=== PATIENT | female | born 1990 | race Caucasian/White ===

== ENCOUNTER 2018-04-21 10:25 | Emergency (ER) | payer MEDICAID ==
[~2018-04-21] VITALS: Ht 165.1 cm; Wt 117.9 kg
[~2018-04-21 10:25] MED LIST: ALBU90OI INH; BENZ100A PO; CEFD300 PO; CEPH500 PO; ERYT.5TO RIGHTEYE; FAMO20 PO; HYDACE5325 PO; METPHE5; MULVITMINE PO; Monodox100 MG PO; Norco 5-325 Ta1 EACH PO; OXYACE5T PO; PRED10 PO; PRED20 PO; PRENZ PO; PROM25 PO; Percocet 5-3251 EACH PO; Prednisone20 MG PO; QUET25 PO; SPACE CHAMBER1 EACH MC; TRAZ100 PO; Tylenol325 MG PO; Verotin-Gr Cap1 EACH
[2018-04-21] MEDS ORDERED: Artificial Tear15 M4 BOTHEYES (12:22)
== END 2018-04-21 12:25 | disposition home or self-care (01) ==
LOC: ER 10:25
DX: B30.9 Viral conjunctivitis, unspecified (principal); F17.210 Nicotine dependence, cigarettes, uncomplicated
CPT/HCPCS: 87081; 87430

== ENCOUNTER 2019-02-26 11:07 | Emergency (ER) | payer OTHER ==
[~2019-02-26] VITALS: Ht 165.1 cm; Wt 127.0 kg
[~2019-02-26 11:07] MED LIST changes: +Artificial Tear15 M4 BOTHEYES
[2019-02-26] MEDS ORDERED: HYDR1TAB94 PO (12:16)
[2019-02-26] MEDS ORDERED: Augmentin 875-1 EACH PO (12:17)
== END 2019-02-26 12:23 | disposition home or self-care (01) ==
LOC: ER 11:07
DX: K04.7 Periapical abscess without sinus (principal); F17.210 Nicotine dependence, cigarettes, uncomplicated; Z88.1 Allergy status to other antibiotic agents
CPT/HCPCS: 99283; A9270-GY

== ENCOUNTER 2022-02-04 18:21 | Emergency (ER) | payer OTHER ==
[~2022-02-04] VITALS: Ht 165.1 cm; Wt 95.2 kg
[~2022-02-04 18:21] MED LIST changes: +Augmentin 875-1 EACH PO; +HYDR1TAB94 PO
[2022-02-04] MEDS ORDERED: CEPH500 PO (22:14)
[2022-02-04] MEDS ORDERED: SULTRIDS PO (22:14)
== END 2022-02-04 22:22 | disposition home or self-care (01) ==
LOC: ER 18:21
DX: L03.116 Cellulitis of left lower limb (principal); F17.210 Nicotine dependence, cigarettes, uncomplicated; Z88.0 Allergy status to penicillin
CPT/HCPCS: 73590; A9270

== ENCOUNTER 2022-02-07 23:37 | Observation (INO) | payer OTHER ==
[~2022-02-07] VITALS: Ht 165.1 cm; Wt 104.7 kg
[~2022-02-07 23:37] MED LIST changes: +SULTRIDS PO
[2022-02-08 02:32] LABS: BASOPHILS ABSOLUTE AUTO 0.09 K/mm3 (0.00-0.23); BASOPHILS PERCENT AUTO 1 % (0-2); EOSINOPHILS PERCENT AUTO 5 % (0-6); Hematocrit 34.7 % (33.0-51.0); Hemoglobin 11.1 g/dL (11.5-16.0); IMMATURE GRAN ABSOLUTE AUTO 0.04 K/mm3 (0.00-0.10); IMMATURE GRAN PERCENT AUTO 1 % (0-1); LYMPHOCYTES PERCENT AUTO 36 % (21-46); MONOCYTES PERCENT AUTO 7 % (4-13); Mean Corpuscular HGB 27.9 pg (26.0-34.0); Mean Corpuscular Volume 87 fL (80-100); Mean Platelet Volume 10.5 fL (9.1-12.4); NEUTROPHILS ABSOLUTE AUTO 4.08 K/mm3 (1.96-9.15); NEUTROPHILS PERCENT AUTO 50 % (41-73); Platelet Count 427 K/mm3 (150-400); RDW Coefficient Variation 13.7 % (11.7-14.2); Red Blood Cell Count 3.98 M/mm3 (3.80-5.20); White Blood Cell Count 8.11 K/mm3 (4.00-11.30)
[2022-02-08 06:07] LABS: Albumin, Blood 2.9 g/dL (3.4-5.0); Albumin/Globulin Ratio 0.7 (0.8-1.8); Bilirubin, Total 0.3 mg/dL (0.1-1.0); Bun/Creatinine Ratio 20.3 (12.0-20.0); Calcium, Blood 9.5 mg/dL (8.5-10.1); Creatinine, Blood 0.74 mg/dL (0.40-1.00); Globulin, Blood 4.3 g/dL (2.2-4.0); Potassium, Blood 4.3 mmol/L (3.5-5.5); Total Protein, Blood 7.2 g/dL (6.4-8.2)
--- NOTE | 2022-02-08 16:12 | NUR ---
ER ADMIT- PT ARRIVED TO ROOM 308 VIA GURNEY FROM ED. PT A/OX4, INDEP INTO BED. PT DENIES ANY PAIN AT THIS TIME. LS CLEAR, ON RA. PT DOES REPORT URINARY URGENCY AND INCONT. PT NOTED TO HAVE A ABSCESS TO LEFT POSTERIOR THIGH, DRAINED IN THE ED AND PACKED. SURROUNDING REDNESS AND SWELLING NOTED. PHOTO TAKEN AND NEW DRESSING APPLIED. PT DENIES ANY OTHER COMPLAINTS. PT ORIENTED TO ROOM AND CALL SYSTEM, CALL LIGHT IN REACH.
[2022-02-09 05:22] LABS: BASOPHILS ABSOLUTE AUTO 0.06 K/mm3 (0.00-0.23); BASOPHILS PERCENT AUTO 1 % (0-2); EOSINOPHILS ABSOLUTE AUTO 0.42 K/mm3 (0.00-0.68); EOSINOPHILS PERCENT AUTO 7 % (0-6); Hemoglobin 10.8 g/dL (11.5-16.0); IMMATURE GRAN ABSOLUTE AUTO 0.05 K/mm3 (0.00-0.10); IMMATURE GRAN PERCENT AUTO 1 % (0-1); LYMPHOCYTES ABSOLUTE AUTO 2.72 K/mm3 (0.84-5.20); LYMPHOCYTES PERCENT AUTO 43 % (21-46); MONOCYTES ABSOLUTE AUTO 0.54 K/mm3 (0.16-1.47); MONOCYTES PERCENT AUTO 9 % (4-13); Mean Corpuscular HGB Conc 31.8 g/dL (31.5-36.5); Mean Corpuscular Volume 88 fL (80-100); Mean Platelet Volume 10.4 fL (9.1-12.4); NEUTROPHILS ABSOLUTE AUTO 2.52 K/mm3 (1.96-9.15); NEUTROPHILS PERCENT AUTO 40 % (41-73); Platelet Count 421 K/mm3 (150-400); RDW Coefficient Variation 13.8 % (11.7-14.2); RDW Standard Deviation 44.6 fL (35.1-46.3); Red Blood Cell Count 3.86 M/mm3 (3.80-5.20); White Blood Cell Count 6.31 K/mm3 (4.00-11.30)
--- NOTE | 2022-02-09 05:52 | NUR ---
SHIFT SUMMARY PATIENT ALERT AND ORIENTED. MEDICATED PER EMAR FOR PAIN. HAD NO COMPLAINTS OF SHORTNESS OF BREATH. NO ACUTE ISSUES NOTED OVERNIGHT. CALL LIGHT WITHIN REACH. REPORT GIVEN TO ONCOMING RN.
--- NOTE | 2022-02-09 17:02 | NUR ---
DISCHARGE SUMMARY S/P L POSTERIOR THIGH I&D, A/OX 4, VSS, TOLERATING PO, AMBULATING INDEPENDENTLY, VOIDING WELL. DISCUSSED DISCHARGE PLANS WITH THE PATIENT INCLUDING HOME MEDICATIONS, HOME CARE AND DRESSING CHANGES, AND FOLLOW UP INFORMATION. IV ACCESS REMOVED AND NO OTHER IV ACCESS DEVICES IN PLACE AT TIME OF DISCHARGE. PT ESCORTED OUT VIA WC TO PRIVATE AUTO TO GO HOME WITH ALL PERSONAL POSSESSIONS.
== END 2022-02-09 16:49 | disposition home or self-care (01) ==
LOC: ER 23:37 → ERHOLD 23:38 → ER 02-08 08:15 → EDBEDREQ 02-08 08:21 → EDBEDREQTM 02-08 08:21 → MEDS 02-08 15:36
PROVIDERS: Student in an Organized Health Care Education/Training Program; ADMIT Internal Medicine
DX: L02.416 Cutaneous abscess of left lower limb (principal); B95.62 Methicillin resistant Staphylococcus aureus infection as the cause of diseases classified elsewhere; F17.210 Nicotine dependence, cigarettes, uncomplicated; Z88.0 Allergy status to penicillin; F19.90 Other psychoactive substance use, unspecified, uncomplicated
CPT/HCPCS: 10060; 36415; 73701; 80053; 85025; 87070; 87077; 87147; 87186; 87205; 96365; 96366; 96372; 96375; 99285-25; A9270; G0378; J1650; J1885; J2405; J7040; Q9967

== ENCOUNTER 2022-04-20 02:09 | Emergency (ER) | payer OTHER ==
[~2022-04-20] VITALS: Ht 165.1 cm; Wt 86.2 kg
[2022-04-20] MEDS ORDERED: Bactrim Ds Tab1 EACH PO (02:31)
== END 2022-04-20 02:54 | disposition home or self-care (01) ==
LOC: ER 02:09
DX: L23.7 Allergic contact dermatitis due to plants, except food (principal); N39.0 Urinary tract infection, site not specified; F17.210 Nicotine dependence, cigarettes, uncomplicated; Z88.1 Allergy status to other antibiotic agents
CPT/HCPCS: 96372; 99283-25; A9270; J0702; J3301

== ENCOUNTER 2023-03-27 05:18 | Emergency (ER) | payer OTHER ==
[~2023-03-27] VITALS: Ht 165.1 cm; Wt 86.2 kg
[~2023-03-27 05:18] MED LIST changes: +Bactrim Ds Tab1 EACH PO
[2023-03-27 05:54] VITALS: BP 135/87
[2023-03-27] MEDS ORDERED: POLYTRIM EYE DR10 M1 BOTHEYES (06:40)
== END 2023-03-27 06:47 | disposition home or self-care (01) ==
LOC: ER 05:18
DX: S05.01XA Injury of conjunctiva and corneal abrasion without foreign body, right eye, initial encounter (principal); X58.XXXA Exposure to other specified factors, initial encounter; Z88.1 Allergy status to other antibiotic agents; Z79.899 Other long term (current) drug therapy; F17.210 Nicotine dependence, cigarettes, uncomplicated
CPT/HCPCS: 99283; A9270

== ENCOUNTER 2023-05-24 21:16 | Emergency (ER) | payer OTHER ==
[~2023-05-24] VITALS: Ht 165.1 cm; Wt 105.2 kg
[~2023-05-24 21:16] MED LIST changes: +POLYTRIM EYE DR10 M1 BOTHEYES
[2023-05-25 00:30] LABS: Source, Urine Clean Catch
[2023-05-25] MEDS ORDERED: Bactrim Ds Tab1 EACH PO (00:39)
[2023-05-25 00:40] LABS: Bilirubin, Urine Neg (Neg); Blood, Urine Neg (Neg); Glucose Qualitative, Urine Neg (Neg); Ketones, Urine Neg (Neg); Leukocyte Esterase, Urine Neg (Neg); Nitrite, Urine Pos (Neg); Protein, Urine 1+ (Neg); Urobilinogen, Urine NORM (Normal)
[2023-05-25] MEDS ORDERED: Mupirocin22 GM TOP (00:40)
[2023-05-25 00:49] VITALS: BP 125/72
[2023-05-25 00:52] LABS: Appearance, Urine Hazy (Clear); Color, Urine Yellow (P-Yellow)
[2023-05-25 00:53] LABS: Bacteria Many /hpf; Calcium Oxalate Crystals Few /hpf; Red Blood Cells, Urine 0-2 /hpf (0-2); Squamous Epithelial Cells Few /hpf (Few); White Blood Cells, Urine 0-2 /hpf (0-5)
== END 2023-05-25 00:50 | disposition home or self-care (01) ==
LOC: ER 21:16
PROVIDERS: Emergency Medicine
DX: N39.0 Urinary tract infection, site not specified (principal); S30.861A Insect bite (nonvenomous) of abdominal wall, initial encounter; W57.XXXA Bitten or stung by nonvenomous insect and other nonvenomous arthropods, initial encounter; F17.210 Nicotine dependence, cigarettes, uncomplicated
CPT/HCPCS: 81001; 87077; 87086; 87186; 99282; A9270

== ENCOUNTER 2023-09-05 03:53 | Emergency (ER) | payer OTHER ==
[~2023-09-05] VITALS: Ht 165.1 cm; Wt 104.3 kg
[~2023-09-05 03:53] MED LIST changes: +Mupirocin22 GM TOP
[2023-09-05 03:59] VITALS: BP 133/65
[2023-09-05] MEDS ORDERED: Robaxin750 MG PO (04:54)
[2023-09-05] MEDS ORDERED: Lidocaine 4% 1 Patch TOP ONE (04:55)
[2023-09-05] MEDS ORDERED: Ibuprofen 600 MG Tab PO ONE (04:55)
[2023-09-05] MEDS ORDERED: Acetaminophen 500 MG Tab PO ONE (04:55)
[2023-09-05] MEDS ORDERED: Methocarbamol 500 MG Tab PO ONE (04:55)
== END 2023-09-05 05:11 | disposition home or self-care (01) ==
LOC: ER 03:53
DX: S39.012A Strain of muscle, fascia and tendon of lower back, initial encounter (principal); W14.XXXA Fall from tree, initial encounter; Z88.1 Allergy status to other antibiotic agents; Z79.899 Other long term (current) drug therapy; F17.210 Nicotine dependence, cigarettes, uncomplicated
CPT/HCPCS: 99283; A9270

== ENCOUNTER 2023-11-27 00:37 | Emergency (ER) | payer OTHER ==
[~2023-11-27] VITALS: Ht 165.1 cm; Wt 104.3 kg
[~2023-11-27 00:37] MED LIST changes: +Robaxin750 MG PO
[2023-11-27 00:40] VITALS: BP 134/81
[2023-11-27] MEDS ORDERED: Clindamycin HCl 150 MG Cap PO ONE (00:50)
[2023-11-27] MEDS ORDERED: CLIN150 PO (00:57)
== END 2023-11-27 01:04 | disposition home or self-care (01) ==
LOC: ER 00:37
DX: K04.7 Periapical abscess without sinus (principal); Z88.1 Allergy status to other antibiotic agents; F17.210 Nicotine dependence, cigarettes, uncomplicated
CPT/HCPCS: 81000; 81025; A9270

== ENCOUNTER 2024-01-29 04:35 | Emergency (ER) | payer OTHER ==
[~2024-01-29] VITALS: Ht 165.1 cm; Wt 104.3 kg
[~2024-01-29 04:35] MED LIST changes: +CLIN150 PO
[2024-01-29 09:04] VITALS: BP 118/66
== END 2024-01-29 09:10 | disposition home or self-care (01) ==
LOC: ER 04:35
DX: S39.012A Strain of muscle, fascia and tendon of lower back, initial encounter (principal); X58.XXXA Exposure to other specified factors, initial encounter
CPT/HCPCS: 73502

== ENCOUNTER 2024-10-17 20:41 | Emergency (ER) | payer OTHER ==
[~2024-10-17] VITALS: Ht 172.7 cm; Wt 127.0 kg
[2024-10-17 20:47] VITALS: BP 144/89
[2024-10-17] MEDS ORDERED: Lidocaine 4% 1 Patch TOP ONE (21:50)
[2024-10-17] MEDS ORDERED: Ketorolac Tromethamine 15mg Vial IM ONE (21:50)
== END 2024-10-17 22:08 | disposition home or self-care (01) ==
LOC: ER 20:41
DX: M54.9 Dorsalgia, unspecified (principal); Z88.0 Allergy status to penicillin; F17.210 Nicotine dependence, cigarettes, uncomplicated
CPT/HCPCS: 71046; 96372; 99283-25; A9270; J1885

== ENCOUNTER 2025-03-11 21:41 | Emergency (ER) | payer OTHER ==
[~2025-03-11] VITALS: Ht 165.1 cm; Wt 117.0 kg
[2025-03-11 21:58] VITALS: BP 142/85
[2025-03-11 22:10] LABS: Source, Urine Clean Catch
[2025-03-11 22:22] LABS: Bilirubin, Urine Neg (Neg); Glucose Qualitative, Urine Neg (Neg); Ketones, Urine Neg (Neg); Leukocyte Esterase, Urine Neg (Neg); Protein, Urine 2+ (Neg); Specific Gravity, Urine 1.030 (1.003-1.022); Urobilinogen, Urine NORM (Normal)
[2025-03-11 22:30] LABS: Color, Urine Yellow (P-Yellow)
[2025-03-11 22:32] LABS: Red Blood Cells, Urine Not Seen /hpf (0-2); White Blood Cells, Urine 0-2 /hpf (0-5)
[2025-03-11 23:54] LABS: Bacterial Vaginosis PCR Negative (NEGATIVE); Candida Group, PCR NOT DETECTED (NOT DETECT); Candida glabrata-krusei, PCR NOT DETECTED (NOT DETECT)
== END 2025-03-12 01:02 | disposition home or self-care (01) ==
LOC: ER 21:41
PROVIDERS: Student in an Organized Health Care Education/Training Program
DX: R39.15 Urgency of urination (principal); Z88.1 Allergy status to other antibiotic agents
CPT/HCPCS: 81001; 81515; 99283